=== PATIENT | female | born 1940 | race Caucasian/White ===

== ENCOUNTER 2020-08-15 18:19 | Emergency (ER) | payer OTHER, SELFPAY ==
[2020-08-15 18:27] VITALS: BP 155/65; PULSE 66; RESP 18; TEMP 37.7; O2SAT 96; BMI 34.4
--- NOTE | 2020-08-15 19:43 | XR_ITS ---
EXAMINATION: XR CHEST CLINICAL INFORMATION: COVID positive. COMPARISON: None TECHNIQUE: Frontal view of the chest was obtained. FINDINGS: There is mild elevation of the right hemidiaphragm. The lungs are clear. The heart and mediastinal structures are unremarkable. XR/XR chest 1V IMPRESSION: No acute cardiopulmonary process.
--- NOTE | 2020-08-15 19:43 | ECG_ITS ---
Test Reason : DIZZINESS Blood Pressure : / mmHG Vent. Rate : 063 BPM Atrial Rate : 063 BPM P-R Int : 172 ms QRS Dur : 098 ms QT Int : 462 ms P-R-T Axes : 062 033 053 degrees QTc Int : 472 ms Sinus rhythm with occasional Premature ventricular complexes Otherwise normal ECG When compared with ECG of 07-JUN-2007 23:51, Premature ventricular complexes are now Present Premature atrial complexes are no longer Present T wave inversion no longer evident in Inferior leads Referred By: Dereck Mills Electronically Signed By:SUDHA ANDERSON MD
[2020-08-15 19:44] VITALS: BP 191/51; PULSE 64; RESP 15; O2SAT 94
--- NOTE | 2020-08-15 19:45 | PC.NURSE ---
pt lined and labbed. hypertensive states she missed her second dose of bp meds tonight. pt requesting to be admitted states she lives at home alone is concerned for her safety due to covid. pt nsr on tele monitor at this time.
[2020-08-15 20:00] LABS: Basophils Percent Auto 0.3 % (0-2); Eosinophils Absolute Auto 0.2 X10*3/uL (0.0-0.4); Eosinophils Percent Auto 1.9 % (0-4); Hematocrit 39.8 % (37-47); Hemoglobin 13.1 g/dl (12.0-16.0); Imm Gran Abs Auto 0.03 X10*3/uL (0.00-0.03); Imm Gran Pct Auto 0.3 % (0.0-0.4); Lymphocytes Percent Auto 22.4 % (20-40); MANUAL DIFF FLAG NO; Mean Corpuscular HGB Conc 32.9 g/dl (31.0-35.0); Mean Corpuscular Hemoglobin 29.2 pg (27.0-33.0); Mean Corpuscular Volume 88.8 fL (80-98); Mean Platelet Volume 9.6 fL (9.4-12.3); Monocytes Absolute Auto 1.1 X10*3/uL (0.1-1.2); Monocytes Percent Auto 12.2 % (2-11); Neutrophils Absolute Auto 5.6 X10*3/uL (2.0-8.3); Neutrophils Percent Auto 62.9 % (45-73); Platelet Count 270 X10*3/uL (160-400); Red Blood Count 4.48 X10*6/uL (4.20-5.50); White Blood Count 8.9 X10*3/uL (4.8-10.8)
[2020-08-15 20:18] LABS: Anion Gap 16 (12-20); Blood Urea Nitrogen 15 mg/dL (9-16); Calcium 9.4 mg/dL (8.4-10.2); Carbon Dioxide 23 mmol/L (22-29); Chloride 105 mmol/L (96-108); Creatinine Clr Calc Pharmacy 45.3; Estimated Glomerular Filt Rate > 60; Glucose Random 164 mg/dL (60-115); Potassium 4.4 mmol/l (3.3-5.1); Sodium 140 mmol/L (135-145)
[2020-08-15 20:22] LABS: Troponin-I High Sensitivity 8.4 ng/L (<3.5-17.0)
--- NOTE | 2020-08-15 20:57 | ED_ITS ---
HPI - General Adult General Chief complaint: General Medical Stated complaint: +COVID Time Seen by Provider: 08/15/20 20:57 Source: patient Mode of arrival: EMS Limitations: no limitations History of Present Illness HPI narrative: This is a 79-year-old female who is COVID-19 positive and is brought in by EMS at the direction of her doctor's office for a transient episode of vertigo that occurred while she was changing position from lying down to sitting up. Patient states that she has vertigo at baseline that she often experiences this while changing position and that this is nothing new. She denies any associated headache, visual changes, hearing changes, speech changes, numbness tingling /weakness into either side of the body. In addition she denies any palpitations chest pain or shortness of breath. Patient has had no further vertigo episodes since she has been here in emergency department. Related Data Previous Rx's Medication Instructions Recorded amlodipine 2.5 mg tablet 2.5 mg PO DAILY #90 tab 06/30/20 Allergies Allergy/AdvReac Type Severity Reaction Status Date / Time amoxicillin [Augmentin] Allergy Unknown Anaphylaxis Verified 08/15/20 18:27 clavulanic acid [Augmentin] Allergy Unknown Anaphylaxis Verified 08/15/20 18:27 indomethacin [Indocin] Allergy Unknown Anaphylaxis Verified 08/15/20 18:27 levofloxacin [Levaquin] Allergy Unknown Anaphylaxis Verified 08/15/20 18:27 Review of Systems Review of Systems: Pertinent positives and negatives as stated in HPI 10 point review of systems otherwise negative. PMFSH Past Medical History Source: nursing notes reviewed Medical History Diabetes Hypertension Social History Social History Alcohol intake: never Smoked in Last 30 Days: No Advance Directives: No Advance Directives Information Provided: Yes Physical Exam Vital Signs: Vital Signs: Last Vital Signs Temp 99.8 F 08/15/20 18:27 Pulse 64 08/15/20 19:44 Resp 15 08/15/20 19:44 BP 191/51 H 08/15/20 19:44 Pulse Ox 94 08/15/20 19:44 Body Mass Index 34.4 VITAL SIGNS: Reviewed. GENERAL: Well developed, well nourished, in no acute distress. HEAD: Normocephalic/atraumatic, EYES: PERRLA, EOMI intact without pain, no nystagmus/pallor/icterus noted EARS: Ext canals without abnormality, TMs non-bulging and non-erythematous NOSE: Nares patent bilateral OROPHARYNX: no oral lesions noted, posterior pharynx clear and non-erythematous without noted tonsillar enlargement/erythema/exudates NECK: Supple, no adenopathy LUNGS: Normal breath sounds. No adventitious sounds or accessory muscle use. SpO2<94> CARDIOVASCULAR: Regular rate and rhythm without noted murmurs, no JVD or lower extremity edema. ABDOMEN: Soft, non-tender, non-distended with bowel sounds. No rigidity. No guarding. No palpable masses or hernias noted MUSCULOSKELETAL: No tenderness, deformities, or effusions noted on gross inspection. EXTREMITIES: No cyanosis, clubbing or edema. SKIN: Inspection of the skin reveals no rashes, ulcerations, jaundice, pallor, or petechiae. NEUROLOGIC: Alert and oriented x 4. Strength and sensation to light touch were grossly intact x 4 , cranial nerves 2-12 are grossly intact, no pronator drift, cerebellar testing is without deficits. Course Course Course Narrative: This is a 79-year-old female with history and clinical presentation consistent with acute, transient episode of her known underlying vertigo that has not been associated with any evidence of hypoxia or cardiac etiology on review of all investigations. There are no neurological findings to suggest intracranial pathologies and patient is stable for discharge to home with follow-up with her primary care provider. All investigations were reviewed. Medical Decision Making Lab Data Result diagrams: 08/15/20 19:49 08/15/20 19:49 Labs: Lab Results 08/15/20 08/15/20 08/15/20 Range/Units 19:49 19:49 19:49 WBC 8.9 (4.8-10.8) X10*3/uL RBC 4.48 (4.20-5.50) X10*6/uL Hgb 13.1 (12.0-16.0) g/dl Hct 39.8 (37-47) % MCV 88.8 (80-98) fL MCH 29.2 (27.0-33.0) pg MCHC 32.9 (31.0-35.0) g/dl RDW 13.0 (11.0-16.0) % Plt Count 270 (160-400) X10*3/uL MPV 9.6 (9.4-12.3) fL Immature Gran % (Auto) 0.3 (0.0-0.4) % Neut % (Auto) 62.9 (45-73) % Lymph % (Auto) 22.4 (20-40) % [place] % (Auto) 12.2 H (2-11) % Eos % (Auto) 1.9 (0-4) % Baso % (Auto) 0.3 (0-2) % Lymph # (Auto) 2.0 (1.2-4.9) X10*3/uL [place] # (Auto) 1.1 (0.1-1.2) X10*3/uL Eos # (Auto) 0.2 (0.0-0.4) X10*3/uL Baso # (Auto) 0.0 (0.0-0.2) X10*3/uL Abs Immat Gran (auto) 0.03 (0.00-0.03) X10*3/uL Absolute Neuts (auto) 5.6 (2.0-8.3) X10*3/uL Absolute Nucleated RBC 0.000 (0.0-0.012) X10*3/uL Nucleated RBC % (auto) 0.0 (0.0-0.2) /100WBC Hold Blue Top SEE NOTE Sodium 140 (135-145) mmol/L Potassium 4.4 (3.3-5.1) mmol/l Chloride 105 (96-108) mmol/L Carbon Dioxide 23 (22-29) mmol/L Anion Gap 16 (12-20) BUN 15 (9-16) mg/dL Creatinine 0.88 (0.5-1.4) mg/dL Estim Creat Clear Calc 45.3 Estimated GFR > 60 Random Glucose 164 H (60-115) mg/dL Calcium 9.4 (8.4-10.2) mg/dL Troponin I High Sens (<3.5-17.0) ng/L 08/15/20 Range/Units 19:50 WBC (4.8-10.8) X10*3/uL RBC (4.20-5.50) X10*6/uL Hgb (12.0-16.0) g/dl Hct (37-47) % MCV (80-98) fL MCH (27.0-33.0) pg MCHC (31.0-35.0) g/dl RDW (11.0-16.0) % Plt Count (160-400) X10*3/uL MPV (9.4-12.3) fL Immature Gran % (Auto) (0.0-0.4) % Neut % (Auto) (45-73) % Lymph % (Auto) (20-40) % [place] % (Auto) (2-11) % Eos % (Auto) (0-4) % Baso % (Auto) (0-2) % Lymph # (Auto) (1.2-4.9) X10*3/uL [place] # (Auto) (0.1-1.2) X10*3/uL Eos # (Auto) (0.0-0.4) X10*3/uL Baso # (Auto) (0.0-0.2) X10*3/uL Abs Immat Gran (auto) (0.00-0.03) X10*3/uL Absolute Neuts (auto) (2.0-8.3) X10*3/uL Absolute Nucleated RBC (0.0-0.012) X10*3/uL Nucleated RBC % (auto) (0.0-0.2) /100WBC Hold Blue Top Sodium (135-145) mmol/L Potassium (3.3-5.1) mmol/l Chloride (96-108) mmol/L Carbon Dioxide (22-29) mmol/L Anion Gap (12-20) BUN (9-16) mg/dL Creatinine (0.5-1.4) mg/dL Estim Creat Clear Calc Estimated GFR Random Glucose (60-115) mg/dL Calcium (8.4-10.2) mg/dL Troponin I High Sens 8.4 (<3.5-17.0) ng/L Discharge Plan Discharge Clinical Impression: Vertigo Patient Disposition: Home, Self-Care Instructions: Vertigo (ED) Additional Instructions: Resume all home medications as prescribed. Increase fluid hydration especially with water. Follow-up with your primary care provider by calling the office in the morning for re-evaluation. The patient and/or family acknowledge understanding of results (as applicable), diagnosis, treatment plan, need for follow up, and symptoms that should prompt a return to the emergency room. Prescriptions: No Action amlodipine 2.5 mg tablet 2.5 mg PO DAILY Qty: 90 RF: 3 Referrals: Arabella Souza MD [Primary Care Provider] - 2 days (Further re-evaluation and management)
[2020-08-16 08:26] LABS: Glucose, Whole Blood 176 mg/dL (60-115)
== END 2020-08-15 21:34 | disposition home or self-care (01) ==
PROVIDERS: Emergency Medicine Emergency Medical Services; Emergency Provider Student in an Organized Health Care Education/Training Program; PCP Internal Medicine
DX: R42 Dizziness and giddiness (principal); U07.1 COVID-19; I10 Essential (primary) hypertension; E11.9 Type 2 diabetes mellitus without complications
CPT/HCPCS: 36415; 71045; 80048; 82947; 84484; 85025; 93005; 99284

== ENCOUNTER 2020-12-13 13:18 | Outpatient (REF) | payer OTHER, SELFPAY ==
[2020-12-13 16:32] LABS: Hemoglobin 13.3 g/dl (12.0-16.0); Mean Corpuscular HGB Conc 33.3 g/dl (31.0-35.0); Mean Corpuscular Hemoglobin 30.3 pg (27.0-33.0); Mean Corpuscular Volume 91.1 fL (80-98); Mean Platelet Volume 10.6 fL (9.4-12.3); Platelet Count 304 X10*3/uL (160-400); Red Blood Count 4.39 X10*6/uL (4.20-5.50); Red Cell Distribution Width 12.5 % (11.0-16.0); White Blood Count 10.1 X10*3/uL (4.8-10.8)
[2020-12-13 16:39] LABS: Estimated Average Glucose 174 mg/dL; Hemoglobin A1c % 7.7 %
[2020-12-13 17:01] LABS: B Type Natriuretic Peptide 266 pg/mL (<100)
[2020-12-13 17:02] LABS: Alanine Aminotransferase 13 U/L (0-31); Alkaline Phosphatase 76 U/L (39-117); Anion Gap 16 (12-20); Aspartate Amino Transferase 14 U/L (5-31); Bilirubin Total 0.6 mg/dL (0.0-1.0); Blood Urea Nitrogen 20 mg/dL (9-16); Calcium 10.7 mg/dL (8.4-10.2); Carbon Dioxide 27 mmol/L (22-29); Chloride 104 mmol/L (96-108); Cholesterol 195 mg/dL; Estimated Glomerular Filt Rate 49; Glucose Fasting 178 mg/dL (60-99); HDL Cholesterol 53 mg/dL; LDL Cholesterol Calculated 117 mg/dl; Potassium 4.7 mmol/L (3.3-5.1); Sodium 142 mmol/L (135-145); Total Protein 6.6 g/dL (6.5-8.0); Triglycerides 127 mg/dL
== END 2020-12-13 13:19 | disposition home or self-care (01) ==
LOC: HO.HMGCLDS 13:18
PROVIDERS: PCP Internal Medicine; Visit Provider Internal Medicine
DX: E03.9 Hypothyroidism, unspecified (principal); E11.9 Type 2 diabetes mellitus without complications; I10 Essential (primary) hypertension; E78.2 Mixed hyperlipidemia
CPT/HCPCS: 36415; 80053; 80061; 83036; 83880; 85027

== ENCOUNTER 2021-04-06 14:42 | Outpatient (REF) | payer OTHER, SELFPAY ==
--- NOTE | ~2021-04-06 | XR_ITS ---
EXAMINATION: XR CHEST CLINICAL INFORMATION: Shortness of breath COMPARISON: None TECHNIQUE: 2 views of the chest were obtained. FINDINGS: The lungs are well-expanded with increased pulmonary vascularity and mild condyle suggestive of some mild CHF. No acute pneumonic infiltrate or pleural effusion suspected. No gross bony abnormality. XR/XR chest 2V IMPRESSION: Cardiomegaly with mild pulmonary vascular congestion.
== END 2021-04-06 14:43 | disposition home or self-care (01) ==
LOC: HO.HMGCX 14:42
PROVIDERS: PCP Internal Medicine; Visit Provider Hospitalist
DX: R06.02 Shortness of breath (principal)
CPT/HCPCS: 71046

== ENCOUNTER 2022-07-25 14:16 | Outpatient (REF) | payer OTHER, SELFPAY ==
[2022-07-25 16:41] LABS: MANUAL DIFF FLAG NO
[2022-07-25 16:49] LABS: Basophils Absolute Auto 0.1 X10*3/uL (0.0-0.2); Basophils Percent Auto 0.9 % (0-2); Eosinophils Absolute Auto 0.2 X10*3/uL (0.0-0.4); Eosinophils Percent Auto 2.2 % (0-4); Hematocrit 37.6 % (37.0-47.0); Hemoglobin 12.1 g/dl (12.0-16.0); Imm Gran Abs Auto 0.06 X10*3/uL (0.00-0.03); Imm Gran Pct Auto 0.6 % (0.0-0.4); Lymphocytes Absolute Auto 2.1 X10*3/uL (1.2-4.9); Lymphocytes Percent Auto 19.9 % (20-40); Mean Corpuscular HGB Conc 32.2 g/dl (31.0-35.0); Mean Corpuscular Hemoglobin 28.9 pg (27.0-33.0); Mean Corpuscular Volume 89.7 fL (80.0-98.0); Mean Platelet Volume 10.6 fL (9.4-12.3); Monocytes Absolute Auto 1.2 X10*3/uL (0.1-1.2); Monocytes Percent Auto 11.4 % (2-11); Neutrophils Absolute Auto 6.9 x10*3/uL (2.0-8.3); Platelet Count 307 X10*3/uL (160-400); Red Blood Count 4.19 X10*6/uL (4.20-5.50); Red Cell Distribution Width 12.5 % (11.0-16.0); White Blood Count 10.7 X10*3/uL (4.8-10.8)
[2022-07-25 16:52] LABS: Estimated Average Glucose 192 mg/dL; Hemoglobin A1c % 8.3 %
[2022-07-25 16:57] LABS: Alanine Aminotransferase 13 U/L (0-31); Albumin Level 4.2 g/dL (3.5-5.0); Alkaline Phosphatase 85 U/L (39-117); Anion Gap 16 (12-20); Aspartate Amino Transferase 14 U/L (5-31); Bilirubin Total 0.6 mg/dL (0.0-1.0); Blood Urea Nitrogen 29 mg/dL (9-16); Calcium 11.2 mg/dL (8.4-10.2); Carbon Dioxide 29 mmol/L (22-29); Chloride 105 mmol/L (96-108); Estimated Glomerular Filt Rate 55; Glucose Random 91 mg/dL (60-115); Potassium 5.3 mmol/L (3.3-5.1); Sodium 145 mmol/L (135-145); Total Protein 6.7 g/dL (6.5-8.0)
[2022-07-25 17:04] LABS: B Type Natriuretic Peptide 660 pg/mL (<100)
[2022-07-25 17:14] LABS: TSH reflex Free T4 1.83 uIU/mL (0.32-4.0)
[2022-07-26 14:12] LABS: Calcium (PTHI) 11.3 mg/dL (8.6-10.4); PTHI 186 pg/mL (16-77)
== END 2022-07-25 14:17 | disposition home or self-care (01) ==
LOC: HO.HMGCLDS 14:16
PROVIDERS: PCP Internal Medicine; Visit Provider Internal Medicine
DX: I11.0 Hypertensive heart disease with heart failure (principal); I50.9 Heart failure, unspecified; I35.0 Nonrheumatic aortic (valve) stenosis; E83.52 Hypercalcemia; E78.5 Hyperlipidemia, unspecified
CPT/HCPCS: 36415; 80053; 83036; 83880; 83970; 84443; 85025

== ENCOUNTER → 2023-02-24 11:34 | Outpatient (BNVA) | payer OTHER, SELFPAY | PROVIDERS: PCP Internal Medicine; Visit Provider Dietitian, Registered | DX: E11.9 Type 2 diabetes mellitus without complications (principal) | CPT/HCPCS: 97802 ==

== ENCOUNTER 2023-04-29 09:14 | Outpatient (AMB) | payer OTHER, SELFPAY ==
[2023-04-29 09:26] VITALS: BMI 28.6
--- NOTE | 2023-04-29 09:26 | A.OFFVIS_ITS ---
Intake VS Expanded 04/29/23 09:26 Height 4 ft 10 in Weight 136 lb 14.513 oz BMI 28.6 Intake Visit Reasons: T2DM Allergies amoxicillin [Augmentin] Allergy (Unknown, Verified 10/15/22 11:56) Anaphylaxis clavulanic acid [Augmentin] Allergy (Unknown, Verified 10/15/22 11:56) Anaphylaxis indomethacin [Indocin] Allergy (Unknown, Verified 10/15/22 11:56) Anaphylaxis levofloxacin [Levaquin] Allergy (Unknown, Verified 10/15/22 11:56) Anaphylaxis HPI Nutrition Presentation Details Pt presents for MNT f/u for DM. 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 For DM , Pt reports taking 20 units of Lantus and 10 units of novolog at lunch and at dinner . Pt did not bring glucometer to this appt. Typical meal Breakfast B: crepes or oatmeal or poached eggs and 1-2 slices of bread , tea or water or milk or juice L: makes soup , low sodium turrkey or ham and brown rice cabbage , D:baked beans with low sodium sausage and cabbage snacks on landa , kiwi, strawberries , yoplait light physical activity: daily life activities with walker Most Recent Diabetes Results: Creatinine 0.98 mg/dL (0.5-1.4) 07/25/22 Blood Urea Nitrogen 29 mg/dL (9-16) H 07/25/22 Sodium 145 mmol/L (135-145) 07/25/22 Potassium 5.3 mmol/L (3.3-5.1) H 07/25/22 Chloride 105 mmol/L (96-108) 07/25/22 Carbon Dioxide 29 mmol/L (22-29) 07/25/22 Calcium 11.2 mg/dL (8.4-10.2) H 07/25/22 AST 14 U/L (5-31) 07/25/22 ALT 13 U/L (0-31) 07/25/22 Total Protein 6.7 g/dL (6.5-8.0) 07/25/22 Albumin 4.2 g/dL (3.5-5.0) 07/25/22 [facility] Medical History (aortic stenosis) CHF (congestive heart failure) Diabetes Hyperlipidemia Hypertension Social History Housing: Assisted Living Facility Alcohol intake: never Patient Tobacco Use Status: Never used Tobacco e-Cigarette/Vaping Use: Never Used Current occupational status: retired Cognitive needs: No Hearing needs: No Vision needs: Yes Assessment & Plan Assessment & Plan (1) Diabetes: Code(s): E11.9 - Type 2 diabetes mellitus without complications Plan: used wt 60 kg Est kcal needs as per MSJ: 1325 (40% carb, 30% protein/fat) Est fluid needs as per 25-30 ml/d: 1511 ml or as per MD recommendation Est prot per day as per 1 g/kg bw: 60g Recommend fiber intake : 8-10 g per day and gradually increase to 25-28 g per day for women and 35-38 g for men or as tolerated Recommend sodium intake per day : less than 1500 mg less than 2000 mg Educated patient on: ( R = reviewed V = verbalizes understanding N/R = needs review N/A = not applicable * Food sources of carbohydrate, adequate serving sizes and its role in various health conditions: R * Differences between complex carbohydrates a simple carbohydrates, role of fiber in diet: NR * Differences between types of fats and role in diet (mono on saturated fat fatty acids, saturated fatty acids, trans fats): NR * Food sources of sodium in salt and healthy modifications for heart health in kidney health: R * Vitamins and minerals: R * Healthy plate method concept: R V * Physical activity: Benefits and precaution: R * Hypoglycemia protocol (rule of 15): R * Dietary prevention of Hyperglycemia: R Patient Instructions: Work on reducing on salt intake by choosing low sodium cottage cheese Choose low sodium foods, read the food labels choosing low % daily value for sodium per serving (5% is low) , boil and discard water to reduce sodium when having processed meats (sausages/hotdogs and the like) Coding Level of Care Code Nutr Indiv Subseq (15104) Diagnoses Diabetes E11.9 Time Spent (min) 30
== END 2023-04-29 10:04 | disposition home or self-care (01) ==
PROVIDERS: PCP Internal Medicine; Visit Provider Dietitian, Registered
DX: E11.9 Type 2 diabetes mellitus without complications (principal)

== ENCOUNTER → 2023-04-29 09:14 | Outpatient (BNVA) | payer OTHER, SELFPAY | PROVIDERS: PCP Internal Medicine; Visit Provider Dietitian, Registered | DX: E11.9 Type 2 diabetes mellitus without complications (principal); Z71.3 Dietary counseling and surveillance | CPT/HCPCS: 97803 ==